=== PATIENT | male | born 1930 | race Caucasian/White ===

== ENCOUNTER → 2016-11-24 | Day surgery (SDC) | payer MEDICARE ==
[~2016-11-24] VITALS: Ht 170.2 cm; Wt 72.3 kg
[~2016-11-24] MED LIST: ASPIRIN LO-DOSE81 MG PO; COREG25 MG PO; COZAAR100 MG PO; DUONEB INH; HYDRODIURIL25 MG PO; KLOR-CON M2020 MEQ PO; LASIX40 MG PO; LASIX80 MG PO; LIPITOR40 MG PO; MULTI VITAMIN1 EACH PO; NORVASC10 MG PO; PROSCAR5 MG PO; XARELTO20 MG PO
--- NOTE | ~2016-11-24 | OR ---
PATIENT'S NAME: KATHE FRANCIS [facility] AGE: 86 Y [address] ROOM: [place] [address] LOCATION: [facility]D ADMIT DATE: 11/24/2016 OR/Procedure Report DISCHARGE DATE: FAMILY PHYSICIAN: Ming Romano MD ATTENDING PHYSICIAN: MAIRA NOGUEIRA SURGEON: Maira Nogueira MD CHIP MIXER: DATE OF PROCEDURE: 11/24/2016 TYPE OF PROCEDURE: Direct current cardioversion. INDICATION: A patient with symptomatic aortic atrial fibrillation with significant dyspnea on exertion with minimal exertion. Despite rate control, the patient has been using Xarelto 20 mg daily and tolerating without any bleeding issues. DESCRIPTION OF PROCEDURE: The patient was brought to the [facility] Lab in a fasting state for over 12 hours. The patient has been n.p.o. Anesthesia was present for deep sedation for the cardioversion. He underwent GIGI procedure 1st without any left atrial appendage thrombus. There was severe aortic insufficiency noted on the GIGI. Once it was ascertained that there was no evidence of left atrial appendage thrombus, it was decided to proceed with cardioversion for atrial fibrillation that was asymptomatic. Pads were positioned in the anterior and posterior position. He underwent direct current cardioversion with one shock at 200 joules that was synchronized and converted him to normal sinus rhythm with just one attempt. The patient tolerated the procedure well without any acute complications. IMPRESSION: Symptomatic atrial fibrillation despite rate control. The patient has been tolerating novel oral anticoagulation without any bleeding issues. The patient converted to normal sinus rhythm after one attempt with 200 joules synchronized cardioversion. PLAN: At this time, I recommend to continue beta blockade as well as the Xarelto. If he has significant improvement in his symptoms, we will continue medical therapy. He does report having lower extremity edema, so I have increased his Lasix to 40 mg daily to see if that will help with some of his symptoms of dyspnea as well as lower extremity edema. I will see him back in my clinic in two weeks and if his symptoms have improved and feels back to baseline, we will monitor the aortic insufficiency closely with serial echocardiograms to evaluate for left ventricular systolic dysfunction or chamber dilatation prior to proceeding with AVR. However, if he continues to PATIENT'S NAME: KATHE FRANCIS [facility] AGE: 86 Y [address] ROOM: [place], [place] [address] LOCATION: [facility] ADMIT DATE: 11/24/2016 OR/Procedure Report DISCHARGE DATE: FAMILY PHYSICIAN: Ming Romano MD ATTENDING PHYSICIAN: MAIRA NOGUEIRA remain symptomatic than the aortic valve will likely need to be replaced and we will proceed with right and left heart catheterization. I will see him back in my clinic in two weeks with proBNP, CMP, FLP, and will repeat another 2D echo if I need to. MAIRA NOGUEIRA MD AT/modl /[id number] CC: Ming Romano MD d: 11/24/16 1545 t: 11/25/16 1210, OPERATIVE SUMMARY
--- NOTE | ~2016-11-24 | ECHO ---
Transesophageal Echocardiography Report (GIGI) Demographics Patient Name KATHE FRANCIS Date of Study 11/24/2016 Patient Number [id number] Visit Number [id number] Date of 1930 Room Number Gender Male Number Age 86 year(s) Referring Rosalina Camacho Craft Recruiter Eric RVT, RDCS Physician MD [place] Physician Interpreting Jacey Rao MD Personnel Clerks Supervisor Physician Supervising Ordering Jacey Rao MD, MD/MLP Physician Nurse Stress Rifle Case Repairer Conclusions Summary Normal LV/RV size and systolic function. Mild biatrial enlargement. The aortic valve is mildly sclerotic. There is severe aortic regurgitation by color Doppler. There is Grade 1 plaque seen in the ascending aorta . There is no LA or LA appendage thrombus or spontaneous contrast. Procedural difficulty: none. Procedure Type of Study GIGI procedure:Doppler , Color Doppler. Procedure Date Date: 11/24/2016 Start: 10:12 AM Study Location: Echo Lab Technical Quality: Good visualization Indications:Atrial fibrillation. Appropriate Use Criteria: 9 Patient Status: Routine HR: 113 bpm BP: 174/81 mmHg Findings Left Atrium There is no thrombus in the left atrial appendage. There is no LA or LA appendage thrombus or spontaneous contrast. There is no evidence of patent foramen ovale or atrial septal defect by color Doppler. Mitral Valve Normal mitral valve structure and function. Mild mitral regurgitation by color Doppler. Aortic Valve The aortic valve is mildly sclerotic. There is severe aortic regurgitation by color Doppler. Tricuspid Valve Normal appearing tricuspid valve. Mild tricuspid regurgitation by color Doppler. Pulmonic Valve The pulmonic valve is not well visualized. No pulmonic valve regurgitation by color Doppler. Miscellaneous The patient was brought to the [facility] lab in the fasting state after informed consent was obtained in the written and verbal format. He was prepped with Lidocaine gel as usual. Bite block was placed by pa. Once adequate anesthesia was obtained with anesthesia guidance with propofol sedation the GIGI probe was placed by me down into the stomach. It was pulled back slightly after a few views were obtained in the transgastric level to the transesophageal position where the majority of the case was carried out. At the end of the case the probe was rotated and withdrawn. Patient tolerated the procedure well. Signature dtt: ENRIQUE NOGUEIRA dtd: 11/24/16 1012 Physician Self Edit
== END | disposition disaster alternative care site (69) ==
LOC: GOPD 11-21
DX: I48.1 Persistent atrial fibrillation (principal); I73.9 Peripheral vascular disease, unspecified; E78.00 Pure hypercholesterolemia, unspecified; I10 Essential (primary) hypertension; I50.30 Unspecified diastolic (congestive) heart failure; I35.1 Nonrheumatic aortic (valve) insufficiency; Z79.899 Other long term (current) drug therapy; Z98.890 Other specified postprocedural states; Z79.82 Long term (current) use of aspirin; Z79.891 Long term (current) use of opiate analgesic
CPT/HCPCS: J2001; J7030

== ENCOUNTER → 2016-12-15 | Outpatient (CLI) | payer MEDICARE ==
--- NOTE | ~2016-12-15 | PUL ---
PATIENT'S NAME: KATHE FRANCIS [facility] AGE: 86 Y [address] ROOM: [place] [address] LOCATION: GRAD ADMIT DATE: 12/15/2016 Pulmonary DISCHARGE DATE: FAMILY PHYSICIAN: Ming Romano MD ATTENDING PHYSICIAN: ENRIQUE NOGUEIRA NAME OF PROCEDURE: Pulmonary Function Test DATE OF PROCEDURE: December 15, 2016 TECH: AMIRA Winslow REASON FOR EXAM: Shortness of breath PROCEDURES PERFORMED: Spirometry without bronchodilator assessment. Measurement of maximum voluntary ventilation. Measurement of lung volumes. Measurement of diffusion capacity. RESULTS: Spirometry showed FVC was 2.88 liters, 86% of predicted. FEV1 was 1.72 liters, 74% of predicted. FEV1/FVC was 60, 84% of predicted. FEF 25-75% was 0.76 liters/second, 51% of predicted. Peak flow was 4.18 liters/second, 69% of predicted. Maximum voluntary ventilation was 49 liters/minute, 49% of predicted. Lung volumes show total lung capacity was 5.49 liters, 98% predicted. Functional residual capacity was 3.4 liters, 101% of predicted. Residual volume was 2.48 liters, 96% of predicted. Diffusing capacity not adjusted for hemoglobin was 74% of predicted. The single breath alveolar volume was 3.6 liters which is a poor estimate of the total lung capacity. The flow volume loop pattern is not interpretable. PHYSICIAN INTERPRETATION: The above data and a corresponding flow volume curve suggest mild airflow obstruction, with normal lung volumes and no impairment in gas transfer. MD ANGELES CHAKRABORTY/gerry /[id number] dtt: 12/29/16 1712 BEATRIZ MEENAKSHI dtd: 12/23/16 0804
== END | disposition disaster alternative care site (69) ==
LOC: GRAD 13:41
DX: R06.02 Shortness of breath (principal); I70.90 Unspecified atherosclerosis; I51.7 Cardiomegaly; R91.8 Other nonspecific abnormal finding of lung field; Z95.828 Presence of other vascular implants and grafts

== ENCOUNTER → 2016-12-16 | Outpatient (CLI) | payer MEDICARE | LOC: GRTH 12:33 | DX: R06.02 Shortness of breath (principal) ==

== ENCOUNTER → 2016-12-22 | Outpatient (CLI) | payer MEDICARE ==
--- NOTE | ~2016-12-22 | PUL ---
PATIENT'S NAME: KATHE FRANCIS [facility] AGE: 86 Y [address] ROOM: [place] [address] LOCATION: [facility] ADMIT DATE: 12/22/2016 Pulmonary DISCHARGE DATE: FAMILY PHYSICIAN: Ming Romano MD ATTENDING PHYSICIAN: ENRIQUE NOGUEIRA NAME OF PROCEDURE: Home sleep test DATE OF PROCEDURE: 12/22/2016 TECH: Teja Govea [facility] SUMMARY: Patient underwent home sleep testing using a type III device and was studied for 9 hours 14 minutes. In that time there were 368 apneas and 112 hypopneas for an apnea/hypopnea index severely elevated at 52 events per hour. Oxygen saturations ranged from 78-93%. Heart rate ranged from 48 to 169 beats per minute. IMPRESSION: Severe obstructive sleep apnea. PLAN: Suggest a facility based study for initiation and titration of CPAP. The patient will receive results from the ordering provider. BONNY SUTTON MD [facility]/ /[id number] dtt: 01/10/17 0756 Brunilda David E. dtd: 12/27/16 1525
== END | disposition disaster alternative care site (69) ==
LOC: GSLP 12-14 15:41
DX: G47.10 Hypersomnia, unspecified (principal); G47.33 Obstructive sleep apnea (adult) (pediatric); I50.9 Heart failure, unspecified; R06.83 Snoring
CPT/HCPCS: G0399